=== PATIENT | female | born 1950 | race Caucasian/White ===

== ENCOUNTER 2022-01-16 17:23 | Emergency (ER) | payer MEDICARE, OTHER | END 2022-01-16 19:28 | disposition home or self-care (01) | LOC: ERS 17:23 | DX: G51.0 Bell's palsy (principal); T63.2X1A Toxic effect of venom of scorpion, accidental (unintentional), initial encounter; I10 Essential (primary) hypertension; E03.9 Hypothyroidism, unspecified; Z79.899 Other long term (current) drug therapy | CPT/HCPCS: 99283 ==